=== PATIENT | female | born 1985 | race Caucasian/White ===

== ENCOUNTER 2016-07-20 20:33 | Emergency (ER) | payer SELFPAY ==
--- NOTE | 2016-07-20 21:34 | ED Physician Documentation ---
General Adult - HISTORIAN Historian: patient - HPI Stated Complaint: poss kidney infection Chief Complaint: General Adult Onset: other (4 months ago) Timing: still present, pain intermittent Severity: mild Further Comments: yes (31 yo female presents with 4 month history of intermittent back pain, nausea, fatigue and foul smelling urine. Was diagnosed with a UTI 4 months ago and subsequently has been on 3 other antibiotics. Cipro from her PCP initially, then 1 month later Bactrim. Also has taken Keflex during this time period. Reports that her symptoms tend to improve while on antibiotics and return within a week after stopping. At times has nausa but no emesis. No weight loss. No rash. No travel outside the [facility]) - ROS CONST: chills, other (fatigue) GI/: abdominal pain, nausea MS/SKIN/LYMPH: none - PAST HX Past History: none Allergies/Adverse Reactions: Allergies Allergy/AdvReac Type Severity Reaction Status Date / Time amoxicillin trihydrate Allergy Verified 07/20/16 21:16 [From Augmentin] potassium clavulanate Allergy Verified 07/20/16 21:16 [From Augmentin] - SOCIAL HX Smoking History: non-smoker Alcohol Use: none - FAMILY HX Family History: No - VITAL SIGNS Vital Signs: Vital Signs Temp Pulse Resp BP Pulse Ox 98.5 F 112 H 18 115/76 98 07/20/16 21:11 07/20/16 21:11 07/20/16 21:11 07/20/16 21:11 07/20/16 21:11 - REVIEWED ASSESSMENTS Nursing Assessment Reviewed: Yes Vitals Reviewed: Yes Progress - Progress Progress: UA: no pyuria, no hematuria CBC,CMP WNL. Discussed with patient her recurring symptoms. Recommend she follow up with her PCP regarding continued work up and any potential specialty referrals that may be warranted. ED Results Lab/Radiology - Orders Orders: ED Orders Category Date Time Status CBC/PLATELET/DIFF Routine Lab 07/20/16 Ordered CMP [CMP] Routine Lab 07/20/16 Ordered General Adult Physical Exam - PHYSICAL EXAM GENERAL APPEARANCE: no distress EENT: eye inspection normal, ENT inspection normal, no signs of dehydration, NIRU NECK: normal inspection RESPIRATORY: no resp distress, chest non-tender CVS: reg rate & rhythm, heart sounds normal ABDOMEN: soft, no organomegaly, normal bowel sounds, no distension EXTREMITIES: non-tender NEURO: oriented X3, CN's nml as tested Discharge Clincal Impression: Fatigue Qualifiers: Fatigue type: unspecified Qualified Code(s): R53.83 - Other fatigue Additional Instructions: Follow up with PCP in 3-5 days for continued discussion and treatment of your recurring complaints All of your lab work tonight are normal Condition: Good Disposition: 01 HOME, SELF-CARE Decision to Admit: NO Decision Time: 22:07
[2016-07-20 21:51] LABS: BASOPHILS % 0.5 (0.0-1.5); EOSINOPHILS % 2.3 % (0.0-6.8); LYMPHOCYTES # 4.3 # k/uL (0.6-4.0); MEAN CORPUSCULAR HEMOGLOBIN 29.8 pg (28.0-34.0); MONOCYTES # 0.8 # k/uL (0.0-0.9); NEUTROPHILS # 5.9 # k/uL (1.4-7.7)
[2016-07-20 22:03] LABS: eGFR (African) > 60; eGFR (Non-African) > 60
[2016-07-20 22:24] VITALS: BP 118/72
[2016-07-21 06:04] LABS: APPEARANCE,URINE CLEAR (CLEAR); COLOR,URINE YELLOW (YELLOW); OCCULT BLOOD,URINE NEGATIVE (NEGATIVE); PH URINE 5.5 (5.0 - 8.0); UROBILINOGEN URINE 0.2 Eu (0.2-1.0)
== END 2016-07-20 22:09 | disposition home or self-care (01) ==
LOC: ED 20:33
DX: R53.83 Other fatigue (principal)
CPT/HCPCS: 80053; 81002; 85025; 99283